=== PATIENT | female | born 1970 | race African-American/Black ===

== ENCOUNTER 2017-01-25 09:37 | Emergency (ER) | payer OTHER ==
--- NOTE | ~2017-01-25 | CT71 ---
[facility] A Service of [facility] RADIOLOGY TEXT RESULTS PATIENT: TIBURCIO DIAZ LOCATION: SED : 70 UNIT #: [id number] AGE: [address]: Toni Sidhu MD SEX: F ORDER DR: [id number] [address] [address] [id number] E MR#: [id number] Acc #: [id number] NAME: TIBURCIO DIAZ : 1970 SEX: F STUDY DATE/TIME: 01/25/2017 10:13 UNIT: SED ROOM: STUDY DESCRIPTION: CT Head Wo Contrast Attending Physician: Toni Sidhu M.D. Ordering Physician: Toni Sidhu M.D. Primary Care Physician: Primary Care Physician No MEDICAL IMAGING REPORT This report is preliminary unless electronic signature is present. EXAM CT head without contrast INDICATION Head injury today at work at 08:30 a.m. with headache since then. TECHNIQUE Unenhanced images were obtained through the brain. This CT examination was performed with one or more of the following radiation dose reduction techniques: automatic exposure control, adjustment of mA and/or kV according to patient size, and iterative reconstruction. FINDINGS The ventricles and subarachnoid spaces are normal. There are no masses or extraaxial fluid collections. There is a prominent perivascular space in the right basal ganglia which is a CSF density area measuring 9 mm in diameter. The skull is intact. IMPRESSION Normal unenhanced head CT scan. There is a comparison MR of the brain from 04/12/2009 which shows the prominent perivascular space. Dictated by... Toni Mejia M.D. THIS IS AN ELECTRONICALLY VERIFIED REPORT Toni Mejia M.D. at 01/25/2017 3:17 PM BARBER/angelica TD: 01/25/2017 14:22 [facility] A Service [facility] RADIOLOGY TEXT RESULTS PATIENT: TIBURCIO DIAZ LOCATION: SED : 70 UNIT #: [id number] AGE: [address]: Toni Sidhu MD SEX: F ORDER DR: JOB #: [id number] MEDICAL IMAGING REPORT Page 1 of 1
--- NOTE | ~2017-01-25 | CT52 ---
[facility] A Service [facility] RADIOLOGY TEXT RESULTS PATIENT: TIBURCIO DIAZ LOCATION: SED : 70 UNIT #: [id number] AGE: [address]: Toni Sidhu MD SEX: F ORDER DR: [id number] [address] [address] [id number] E MR#: [id number] Acc #: [id number] NAME: TIBURCIO DIAZ : 1970 SEX: F STUDY DATE/TIME: 01/25/2017 10:23 UNIT: SED ROOM: STUDY DESCRIPTION: CT Cervical Spine Wo Cont Attending Physician: Toni Sidhu M.D. Ordering Physician: Toni Sidhu M.D. Primary Care Physician: No Primary Care Physician MEDICAL IMAGING REPORT This report is preliminary unless electronic signature is present. EXAM CT cervical spine without contrast, 01/25/2017, 1023 hours. HISTORY Patient was hit in the head with a door at work today at 0830 hours. Head injury with neck pain in the posterior neck, headache and eye pain with nausea. COMPARISON MRI cervical spine 08/16/2007. TECHNIQUE Axial noncontrasted thin cut images were obtained from the skull base through the upper thoracic spine without contrast. Sagittal and coronal reconstructions were performed. Total exam DLP for the cervical spine CT is 672 mGy-cm. This CT exam was performed with one or more of the following radiation dose reduction techniques: automatic exposure control, adjustment of mA and/or kV according to patient size, and iterative reconstruction. FINDINGS Limited views through the posterior fossa are clear. There is no skull base fracture. The mastoid air cells are clear. C1-2 articulation is normal. The dens is intact. C2-3 is normal. C3-4 is normal. C4-5 is normal. C5-6 is normal. [facility] A Service [facility] RADIOLOGY TEXT RESULTS PATIENT: TIBURCIO DIAZ LOCATION: SED : 70 UNIT #: [id number] AGE: [address]: Toni Sidhu MD SEX: F ORDER DR: C6-7 is normal. C7-T1 is normal. T1-T2 is normal. The surrounding soft tissues demonstrate no lesion or hematoma. IMPRESSION Negative cervical spine CT. No change from cervical MRI 08/16/2007. Dictated by... Anastacia Huang M.D. THIS IS AN ELECTRONICALLY VERIFIED REPORT Anastacia Huang M.D. at 01/25/2017 2:35 PM ROLA/pool TD: 01/25/2017 14:19 JOB #: [id number] MEDICAL IMAGING REPORT Page 1 of 1
[2017-01-25] MEDS ORDERED: DEPAKOTE PO (09:49)
[2017-01-25] MEDS ORDERED: FAMOTIDINE10 MG PO (09:49)
[2017-01-25] MEDS ORDERED: ZANAFLEX PO (09:49)
[2017-01-25] MEDS ORDERED: LISINOPRIL PO (09:50)
[2017-01-25] MEDS ORDERED: BYSTOLIC10 MG PO (09:50)
[2017-01-25] MEDS ORDERED: PROCARDIA10 MG PO (09:50)
== END 2017-01-25 11:40 | disposition home or self-care (01) ==
LOC: SED 09:37
DX: S16.1XXA Strain of muscle, fascia and tendon at neck level, initial encounter (principal); S00.03XA Contusion of scalp, initial encounter; S09.90XA Unspecified injury of head, initial encounter; I10 Essential (primary) hypertension; Z87.891 Personal history of nicotine dependence; W22.8XXA Striking against or struck by other objects, initial encounter; Y92.219 Unspecified school as the place of occurrence of the external cause
CPT/HCPCS: 70450; 72125; 99284